=== PATIENT | female | born 1945 | race Caucasian/White ===

== ENCOUNTER 2016-09-21 17:16 | Emergency (ER) | payer MEDICARE, OTHER ==
[~2016-09-21] VITALS: Ht 170.2 cm; Wt 68.0 kg
[~2016-09-21 17:16] MED LIST: CELEXA20 MG PO; CRESTOR10 MG PO; KEFLEX500 MG PO; OMEPRAZOLE20 MG PO; SYNTHROID100 MCG PO
--- NOTE | 2016-09-21 20:38 | EKG ---
[facility] [address] [facility] [place] [address] Signed Sinus bradycardia Low voltage QRS Borderline ECG No previous ECGs available Confirmed by MACIEJ STERN MD ([id number]) on 09/21/2016 8:38:13 PM Electronically Signed By: MACIEJ STERN MD 09/21/16 2038 PATIENT NAME: SAMREEN LANZA BAL Electrocardiogram DATE OF : 49 PHYSICIAN: MACIEJ STERN MD REPORT #: [id number] REPORT IS CONFIDENTIAL AND NOT TO BE RELEASED WITHOUT AUTHORIZATION
== END 2016-09-21 19:33 | disposition home or self-care (01) ==
LOC: ED 17:16
DX: R55 Syncope and collapse (principal); F32.9 Major depressive disorder, single episode, unspecified; K21.9 Gastro-esophageal reflux disease without esophagitis; Z85.3 Personal history of malignant neoplasm of breast; Z90.89 Acquired absence of other organs; Z90.10 Acquired absence of unspecified breast and nipple; Z79.899 Other long term (current) drug therapy
CPT/HCPCS: 70450; 80053; 84484; 85025; 93005; 93010; 99284

== ENCOUNTER 2016-10-06 02:11 | Emergency (ER) | payer MEDICARE, OTHER ==
[~2016-10-06] VITALS: Ht 170.2 cm; Wt 68.0 kg
--- NOTE | 2016-10-06 07:21 | EKG ---
[facility] [address] [facility] [place] [address] Signed Normal sinus rhythm Low voltage QRS Borderline ECG When compared with ECG of 21-SEP-2016 18:05, No significant change was found Confirmed by BRUNO BUNCH MD ([id number]) on 10/06/2016 7:21:18 AM Electronically Signed By: BRUNO BUNCH MD 10/06/16 0721 PATIENT NAME: SAMREEN LANZA BAL Electrocardiogram DATE OF : 49 PHYSICIAN: BRUNO BUNCH MD REPORT #: [id number] REPORT IS CONFIDENTIAL AND NOT TO BE RELEASED WITHOUT AUTHORIZATION
== END 2016-10-06 04:30 | disposition home or self-care (01) ==
LOC: ED 02:11
DX: R55 Syncope and collapse (principal); Z79.899 Other long term (current) drug therapy
CPT/HCPCS: 80053; 84484; 85025; 93005; 93010; 96360; 99284; J7030

== ENCOUNTER 2024-03-06 07:29 | Day surgery (SDC) | payer MEDICARE, OTHER ==
[~2024-03-06] VITALS: Ht 170.2 cm; Wt 65.8 kg
[~2024-03-06 07:29] MED LIST changes: +IBLOOD GLUCOSE TEST STRIP 1 EA TEST VI PRN; +LACTATED RINGER'S 1,000 ML IV SCH; +LIDOCAINE HCL 1% 5 ML SDV INJ ONE; +LIDOCAINE HCL 4% 50 ML BTL TOP SCH; +MIDAZOLAM HCL 5 MG/5 ML VIAL IV PRN; +MULTIVITAMIN1 EACH PO; +fentaNYL citrate 100 MCG/2 ML VIAL IV PRN
--- NOTE | 2024-03-06 07:35 | NUR ---
PT NOT AVAILABLE FOR VISIT. PROVIDED PRAYER.
[2024-03-06 07:47] VITALS: BP 133/69
[2024-03-06] MEDS ORDERED: BIOTIN5 MG PO (07:51)
[2024-03-06] MEDS ORDERED: MIDAZOLAM HCL 2 MG/2 ML VIAL ONE (08:15)
[2024-03-06] MEDS ORDERED: fentaNYL citrate 100 MCG/2 ML VIAL ONE (08:15)
--- NOTE | 2024-03-06 09:42 | NUR ---
03/06/24 0942 Mago Neal PT TO PACU SLEEPY BUT AROUSABLE DENIES PAIN AND NAUSEA.
[2024-03-06 10:30] VITALS: BP 124/75
--- NOTE | 2024-03-06 13:15 | OR ---
[facility] [address] [place], [place] [address] Signed DATE OF OPERATION: 03/06/2024 SURGEON: Ibis Mitchell MD PREOPERATIVE DIAGNOSES: 1. Episodic dysphagia (monthly). 2. History of colon polyps. POSTOPERATIVE DIAGNOSES: 1. Schatzki's ring, benign stricture, distal esophagus with associated hiatal hernia. 2. Small polyp right colon and diverticulosis. PROCEDURES: 1. Esophagogastroduodenoscopy with biopsies. 2. Total colonoscopy to cecum with cold morcellation polypectomy x1. ANESTHESIA: Intravenous sedation; fentanyl 150 mcg and Versed 5 mg total. INDICATION: This 78-year-old white woman is a patient of Dr. Rodriguez in [facility]. She last underwent colonoscopy by Dr. Sebastian Park in [place] in 2018. She was noted to have polyps upon review of her operative report from March of 2018, confirming a tortuous colon and several polyps throughout the colon. She has no current symptoms of bleeding, diarrhea, or constipation and no family history of colon cancer. Additionally, the patient has undergone right mastectomy in 1995 and other interventions for breast cancer. She lives in [place], [place], though has family members in [place]. She is admitted at this time to undergo upper endoscopy on the basis of episodic dysphagia (monthly) as well as colonoscopy for surveillance regarding colon polyps. She understands as does her the risk of bleeding, infection, and perforation and wished to proceed. FINDINGS: Upper endoscopy showed normal vocal cords. There was a distal benign Schatzki's ring which was "broken up" with multiple biopsies. Formal dilation was not undertaken at this time. The stomach and duodenum were essentially normal except for hiatal hernia. CLOtest was negative negative for H pylori thus far. On colonoscopy, the prep was quite good. Complete colonoscopy was undertaken to the Electronically Signed By: IBIS MITCHELL MD 03/06/24 1465 PATIENT NAME: SAMREEN LANZA OPERATIVE REPORT DATE OF : 49 REPORT #: [id number] PHYSICIAN: IBIS MITCHELL MD PCP: MIMI CAMPBELL MD REPORT IS CONFIDENTIAL AND NOT TO BE RELEASED WITHOUT AUTHORIZATION [facility] [address] [place], [place] [address] Signed cecum without problem. There was a small polyp of the right colon which was excised. There were diverticula of the sigmoid. DESCRIPTION OF PROCEDURE: The patient was brought to the surgical endoscopy suite and placed in the lateral decubitus position, given intravenous sedation to the point of slurred speech and nystagmus and full cardiopulmonary monitoring was maintained. A bite block was placed. After satisfactory sedation, an Olympus video upper endoscope passed in the hypopharynx. The vocal cords appeared normal. The scope was advanced into the esophagus. Throughout its length, it was normal except in the very distal portion where Schatzki's ring was noted. It was not particularly dense and did not impair passage of the scope. The scope was advanced to the stomach which was insufflated with air. Rugal folds were normal. Antral motility normal. Pylorus normal. Scope was passed through the pylorus into the duodenum, which was also normal. Biopsies were obtained there to assess for occult celiac disease as the mucosa did appear to be attenuated. The scope was withdrawn and biopsy was then taken of the antrum for both MOIRA and pathologic testing. Retroflexed view was undertaken showing a few inflammatory polyps and a hiatal hernia which was small. The scope was withdrawn to the distal esophagus and positioned in relation to the Schatzki's ring. Multiple biopsies were taken of the ring to break it up. Formal dilation was deemed inadvisable on this occasion. The scope was withdrawn and the mid esophagus then biopsied to assess for eosinophilic esophagitis. Further withdrawal of scope showed no other findings. Plans were then made for colonoscopy. Additional sedation was given as needed. Digital rectal examination was found to be normal. An Olympus video colonoscope was passed in the rectum and manipulated throughout the colon ultimately intubating the cecum itself. The ileocecal valve and appendiceal orifice were normal. The scope was withdrawn from that point and in the right colon there was a small polyp behind the fold, which was excised with cold morcellation technique. Further withdrawal showed no other abnormality other than diverticulosis of the sigmoid colon. Retroflexed view of the rectum was normal. Scope was removed and the patient was taken to the recovery room in good condition. CONCLUDING DIAGNOSES: 1. Schatzki's ring related to hiatal hernia and chronic reflux. Would recommend continued use of PPI medication. If she has persistent dysphagia, dilation would be undertaken without problem. 2. Sigmoid diverticulosis and associated small polyp right colon. Would recommend repeat colonoscopy in 3 to 5 years on that basis, sooner if symptoms should develop. Electronically Signed By: IBIS MITCHELL MD 03/06/24 9965 PATIENT NAME: SAMREEN LANZA OPERATIVE REPORT DATE OF : 49 REPORT #: [id number] PHYSICIAN: IBIS MITCHELL MD PCP: MIMI CAMPBELL MD REPORT IS CONFIDENTIAL AND NOT TO BE RELEASED WITHOUT AUTHORIZATION [place] [id number] Signed MD WENDI Foote/MODL /[id number] cc: Mimi Rodriguez MD Copies: ~ Electronically Signed By: IBIS MITCHELL MD 03/06/24 1315 PATIENT NAME: SAMREEN LANZA BAL OPERATIVE REPORT DATE OF : 49 REPORT #: [id number] PHYSICIAN: IBIS MITCHELL MD PCP: MIMI CAMPBELL MD REPORT IS CONFIDENTIAL AND NOT TO BE RELEASED WITHOUT AUTHORIZATION
--- NOTE | 2024-03-11 15:58 | PATH ---
[facility] [address] [facility] [place], [place] [address] Signed SPECIMEN(S): A DUODENAL BIOPSY SPECIMEN(S): B ANTRUM BIOPSY SPECIMEN(S): C LOWER ESOPHAGEAL BIOPSY SPECIMEN(S): D MIDDLE ESOPHAGEAL BIOPSY SPECIMEN(S): E ASCENDING COLON POLYP SPECIMEN SOURCE: A. DUODENAL BIOPSY B. ANTRUM BIOPSY C. LOWER ESOPHAGEAL BIOPSY D. MIDDLE ESOPHAGEAL BIOPSY E. ASCENDING COLON POLYP CLINICAL HISTORY: GERD, history of colon polyps. Post: Schatzki's ring, hiatal hernia, colon polyp. FINAL PATHOLOGIC DIAGNOSIS: A. Duodenal biopsy: - Benign duodenal mucosa, negative for specific diagnostic abnormality. B. Antrum biopsy: - Benign gastric mucosa with superficial mild chronic inflammation (gastritis). - A Helicobacter pylori immunostain is negative for organisms. C. Lower esophageal biopsy: - Benign esophageal and gastric mucosa with focal slight chronic inflammation. - Negative for specialized intestinal metaplasia or dysplasia. D. Middle esophageal biopsy: - Benign esophageal epithelium, negative for increased epithelial eosinophils. E. Ascending colon polyp: - Polypoid colonic mucosa, negative for pathologic inflammation, epithelial dysplasia, or evidence of malignancy. JVR:concepcion MICROSCOPIC EXAMINATION: Histologic sections of all submitted blocks are examined by light microscopy. These findings, together with the gross examination, support the pathologic diagnosis. B. A Helicobacter pylori immunostain is performed with appropriate positive and negative controls on block B1 and is negative for organisms. JVR:concepcion PATIENT NAME: KYARA MÉNDEZTE [facility] PATHOLOGY DATE OF : 49 REPORT #: [id number] PHYSICIAN: JOHNNY PATHOLOGY PCP: NILAY CAMPBELL MD REPORT IS CONFIDENTIAL AND NOT TO BE RELEASED WITHOUT AUTHORIZATION [facility] [address] [place], [place] [address] Signed GROSS DESCRIPTION: A. The specimen, labeled and designated "Vaibhav Méndez, duodenum biopsy," is received in formalin and consists of three mccoy soft tissue fragments, ranging from 0.2-0.3 cm. Entirely submitted in (A1). B. The specimen, labeled and designated "Vaibhav Méndez, antrum biopsy," is received in formalin and consists of one mccoy soft tissue fragment, 0.4 cm. Entirely submitted in (B1). C. The specimen, labeled and designated "Vaibhav Méndez, lower esophageal biopsy," is received in formalin and consists of multiple mccoy soft tissue fragments, 0.2-0.3 cm. Entirely submitted in (C1). D. The specimen, labeled and designated "Vaibhav Méndez, middle esophageal biopsy," is received in formalin and consists of one mccoy soft tissue fragment, 0.5 cm. Entirely submitted in (D1). E. The specimen, labeled and designated "Vaibhav Méndez, ascending colon polyp," is received in formalin and consists of three mccoy soft tissue fragments, ranging from 0.2-0.3 cm. Entirely submitted in (E1). AB (under the direct supervision of a pathologist) The Gross Description was prepared using a voice recognition system. The report was reviewed for accuracy; however, sound-alike word errors, addition and/or deletions may occur. If there is any question about this report, please contact Client Services. ADDITIONAL NOTES: Immunohistochemical and/or in situ hybridization studies were performed on this case with the appropriate positive controls that react as expected. This test was developed and its performance characteristics determined by [employer] It has not been cleared or approved by the U.S. Food and Drug Administration. The FDA has determined that such clearance or approval is not necessary. This test is used for clinical purposes. It should not be regarded as investigational or for research. [employer] is certified under the Clinical Laboratory Improvement Amendments of 1988 (CLIA) as qualified to perform high complexity clinical laboratory testing. This assay has not been validated for specimens that have been decalcified. PERFORMING LABORATORY: Technical component was performed by [employer] [address] [place] [id number] (CLIA# [id number]). PATIENT NAME: SAMREEN MÉNDEZ BAL PATHOLOGY DATE OF : 49 REPORT #: [id number] PHYSICIAN: JOHNNY GAN PCP: NILAY CAMPBELL MD REPORT IS CONFIDENTIAL AND NOT TO BE RELEASED WITHOUT AUTHORIZATION [facility] [address] [place] [id number] Signed Professional interpretation was performed by [facility], [address] [place], [place] [address]., [place] [address] (CLIA#: [id number]). Diagnostician: Wang Huitron MD Pathologist Electronically Signed 03/11/2024 Copies: ~ PATIENT NAME: SAMREEN MÉNDEZ BAL PATHOLOGY DATE OF : 49 REPORT #: [id number] PHYSICIAN: JOHNNY PATHOLOGY PCP: NILAY CAMPBELL MD REPORT IS CONFIDENTIAL AND NOT TO BE RELEASED WITHOUT AUTHORIZATION
== END 2024-03-06 10:40 | disposition home or self-care (01) ==
LOC: DS 07:29
PROVIDERS: ATTEND Surgery
PROC: 0DB38ZX Excision of Lower Esophagus, Via Natural or Artificial Opening Endoscopic, Diagnostic (ICD-10-PCS; 2024-03-06)
PROC: 0DBF8ZX Excision of Right Large Intestine, Via Natural or Artificial Opening Endoscopic, Diagnostic (ICD-10-PCS; 2024-03-06)
PROC: 0DB98ZX Excision of Duodenum, Via Natural or Artificial Opening Endoscopic, Diagnostic (ICD-10-PCS; principal; 2024-03-06 08:30)
PROC: 0DB68ZX Excision of Stomach, Via Natural or Artificial Opening Endoscopic, Diagnostic (ICD-10-PCS; 2024-03-06 08:30)
DX: K22.2 Esophageal obstruction (principal); K44.9 Diaphragmatic hernia without obstruction or gangrene; K57.30 Diverticulosis of large intestine without perforation or abscess without bleeding; K29.50 Unspecified chronic gastritis without bleeding; K21.00 Gastro-esophageal reflux disease with esophagitis, without bleeding; K63.5 Polyp of colon; E05.00 Thyrotoxicosis with diffuse goiter without thyrotoxic crisis or storm; Z85.3 Personal history of malignant neoplasm of breast; Z79.899 Other long term (current) drug therapy
CPT/HCPCS: 88305; 88342; 99153; G0500; J2250; J3010; J7121

== ENCOUNTER 2024-10-22 09:03 | Emergency (ER) | payer OTHER, MEDICARE ==
[~2024-10-22] VITALS: Ht 170.2 cm; Wt 78.9 kg
[~2024-10-22 09:03] MED LIST changes: +BIOTIN5 MG PO; -IBLOOD GLUCOSE TEST STRIP 1 EA TEST VI PRN; -LACTATED RINGER'S 1,000 ML IV SCH; -LIDOCAINE HCL 1% 5 ML SDV INJ ONE; -LIDOCAINE HCL 4% 50 ML BTL TOP SCH; -MIDAZOLAM HCL 5 MG/5 ML VIAL IV PRN; -fentaNYL citrate 100 MCG/2 ML VIAL IV PRN
[2024-10-22 10:02] VITALS: BP 164/90
[2024-10-22] MEDS ORDERED: HYDROCODON-ACE1 EA10 PO (11:13)
[2024-10-22] MEDS ORDERED: ONDANSETRON ODT4 MG PO (11:13)
[2024-10-22] MEDS ORDERED: ONDANSETRON 4 MG TAB ODT SL ONE (11:15)
[2024-10-22] MEDS ORDERED: HYDROCODONE/ACETA 5/325 TAB PO ONE (11:15)
== END 2024-10-22 11:20 | disposition home or self-care (01) ==
LOC: ED 09:03
DX: S42.252A Displaced fracture of greater tuberosity of left humerus, initial encounter for closed fracture (principal); S42.212A Unspecified displaced fracture of surgical neck of left humerus, initial encounter for closed fracture; V58.4XXA Person boarding or alighting a pick-up truck or van injured in noncollision transport accident, initial encounter; E03.9 Hypothyroidism, unspecified; Z79.890 Hormone replacement therapy; Z79.899 Other long term (current) drug therapy
CPT/HCPCS: 73030; 99283; A9270